=== PATIENT | female | born 1985 | race Caucasian/White ===

== ENCOUNTER 2018-10-31 14:57 | Outpatient (CLI) | payer OTHER ==
--- NOTE | 2018-10-31 16:35 | ULT ---
Obstetric sonogram HISTORY: Second trimester gestation. evaluation. FINDINGS: Single intrauterine gestation in cephalic presentation. Cervix is closed and 3.6 cm. Grade 0 placenta is posterior. No evidence of previa. Amniotic fluid is subjectively within normal limits. No gross intracranial abnormalities. spine and kidneys are intact as visualized. Four-c hamber heart shows motion at 139 bpm. Three-vessel cord shows a normal insertion. Measurements are as follows: Biparietal diameter 20 weeks 1 day. Head circumference 19 weeks 5 days. Abdominal circumference 20 weeks 4 days. Femur length 19 weeks 3 days. [place] 52 percentile. IMPRESSION: Single viable intrauterine gestation with estimated gestational age based on today's sono gram 19 weeks 5 days.
== END 2018-10-31 14:58 | disposition home or self-care (01) ==
LOC: SCSULT 14:57
PROVIDERS: ATTEND Family Medicine
DX: Z32.01 Encounter for pregnancy test, result positive (principal); Z3A.19 19 weeks gestation of pregnancy
CPT/HCPCS: 76805

== ENCOUNTER 2018-12-05 14:01 | Outpatient (CLI) | payer OTHER ==
--- NOTE | 2018-12-05 15:06 | ULT ---
LIMITED OB ULTRASOUND: HISTORY: Left-sided pain for a day and a half. No bleeding. FINDINGS: Real-time imaging of the pelvis demonstrates a single viable intrauterine in a cephalic pre sentation. The placenta is posterior in location without evidence of previa. The cervical canal [facility] is 3.6 cm. heart rate is 144 b.p.m. Amniotic fluid is adequate for this stage of pregnanc y with an amniotic fluid index of 18.8. measurements are as follows: BPD 6.3 cm, 25 weeks 4 days Head circumference 23.2 cm, 25 weeks 1 day Abdominal circumference 19.7 cm, 24 weeks 2 days Femur length 4.2 cm, 23 weeks 6 days IMPRESSION: 1. Single viable intrauterine in a cephalic presentation, overall measurements correspondi ng to a gestational age of 25 weeks 1 day, estimated date of delivery 03/19/2019. 2. Placenta which is posterior in location without evidence of previa. 3. Cervical canal length of 3.6 cm. POS: TPC
== END 2018-12-05 14:02 | disposition home or self-care (01) ==
LOC: SCSULT 14:01
PROVIDERS: ATTEND Family Medicine
DX: O47.00 False labor before 37 completed weeks of gestation, unspecified trimester (principal); Z3A.25 25 weeks gestation of pregnancy
CPT/HCPCS: 76815

== ENCOUNTER 2018-12-07 12:15 | Inpatient (IN) | payer OTHER ==
[2018-12-07 13:30] VITALS: BMI 27.2
--- NOTE | 2018-12-07 14:52 | ULT ---
Limited obstetrical ultrasound INDICATION: Evaluate cervical length COMPARISON: Prior exam dated December 05, 2018 FINDINGS: There is a live intrauterine gestation in cephalic presentation. Cardiac activity is noted at 149 bpm. The cervical length was approximately 2.6 cm without evidence of internal funneling. IMPRESSION: Cervical length of 2.6 cm, slightly shortened from the comparison exam dated 11/27/2018 wh ere the cervix measured 3.13 cm.
[2018-12-07] MEDS ORDERED: Acetaminophen 500 MG TAB PO PRN (15:02)
[2018-12-07] MEDS ORDERED: Promethazine HCl 25 MG/ML VIAL IM PRN (15:02)
[2018-12-07] MEDS ORDERED: Ondansetron PF 4 MG/2 ML Vial IVP PRN (15:02)
[2018-12-07] MEDS ORDERED: Betamet Acet/Betamet Na Ph 30 MG/5 ML VIAL ONE (15:14)
[2018-12-07 15:37] LABS: Hemoglobin 12.2 g/dL (12.0-16.0); Mean Corpuscular HGB CONC 34.9 g/dL (32.0-36.0); Mean Corpuscular Hemoglobin 31.4 pg (27.0-31.0); Mean Corpuscular Volume 90.1 fL (78.0-98.0); Mean Platelet Volume 8.1 fL (7.4-10.4); Platelet Count 223 thou/uL (130-400); RBC Distribution Width 11.8 % (11.5-14.5); Red Blood Cell (RBC) Count 3.89 mill/uL (4.20-5.40); White Blood Cell (WBC) Count 10.8 thou/uL (4.8-10.8)
[2018-12-07 16:17] LABS: Bilirubin Negative (Negative); Blood, Urine 2+ (Negative); Clarity Clear (Clear); Glucose, Urine (Dipstick) Normal (Negative); Leukocyte Negative Leu/uL (Negative); Nitrite Negative (Negative); Protein, Urine (Dipstick) Negative (Neg-Trace); Squamous Epithelial 0-3 HPF (0-3); Urobilinogen Normal mg/dL (Less than 2); WBC/HPF 0-3 HPF (0-3)
[2018-12-07 16:26] LABS: Bacteria/HPF 1+ HPF (None Seen)
[2018-12-07 16:27] LABS: Urine Culture Reflex No No
--- NOTE | 2018-12-07 19:58 | PDOC.LDHP ---
Labor and Delivery H&P Chief complaint: other (short cervix) HPI: 33 y/o G1 at 25w3d, patient of Tushar Ornelas, sent from clinic for cramping and spotting. Was seen earlier in the week and found to have cx length of 3.1. Had sex Monday. Continues to have some mild spotting but no heavy bleeding. Occasional cramping but no consistent ctx. Denies LOF. +FM. Had exam in office where VP3 was collected. ROS neg for HEENT, cv, pulm, gi, gu, neuro, psych, skin, musculoskeletal, or constitutional symptoms other than mentioned above OB History Details: First Current complications: none Past Medical History: None Current medications: pre-christi vitamins Previous surgical history: none Allergies/Adverse Reactions: Allergies Allergy/AdvReac Type Severity Reaction Status Date / Time No Known Allergies Allergy Verified 12/07/18 15:56 Social history: none - Physical Exam Vital signs reviewed and normal: yes General: NAD, resting FHT: category 1 (140s, mod variabilty, AGA reactive) [place] contractions every: occasional - OB Labs Blood type: A RH: positive - Assessment L&D Assessment: labor (short cervix) - Plan Plan: admit to L&D -: 1. Celestone for lung maturity 2. Will start tocolysis, abx, MgSO4 if ctx start 3. UA, VP3, GC/CT pending 4. Consider repeat cervical length after steroids if no s/s PTL.
[2018-12-08] MEDS: Lactated Ringer's 1,000 ML IV SCH ×5 (00:03→20:06)
[2018-12-08] MEDS ORDERED: Calcium Gluc 4.6 MEQ/10 ML (100 MG/ML) SLOW IVP PRN (07:01)
[2018-12-08] MEDS ORDERED: Penicillin G Potassium 5 MILL.UNITS VIAL ONE (07:07)
[2018-12-08] MEDS ORDERED: Penicillin G Potassium 5 MILL.UNITS in Sodium Chloride 0.9% 100 ML IVPB SCH (07:15)
[2018-12-08] MEDS: Magnesium Sulfate 20 gm/500 ml 20 GM/500 ML BAG ONE (07:15)
[2018-12-08] MEDS: Magnesium Sulfate 20 gm/500 ml 20 GM/500 ML BAG IVPB SCH ×3 (07:15→15:17)
[2018-12-08] MEDS ORDERED: MAGNESIUM IVPB SCH (07:15)
--- NOTE | 2018-12-08 07:46 | PDOC.EVN ---
Event Note - Event Note Event Note: Patient with ctx on monitor q 2-3 mins overnight but not significantly painful. Continued spotting. AFVSS Gen - AAONAD Chest - nonlabored Abd - gravid, NTTP SVE - /50/-2 A/P - 33 y/o G1 at 25w4d with 1. Shortened cx with ?PTL, now with ctx on monitor. Will start MgSO4 for neuroprotection, PCN. Continue to monitor.
[2018-12-08] MEDS: Betamet Acet/Betamet Na Ph 30 MG/5 ML VIAL IM SCH ×2 (07:57→15:17)
--- NOTE | 2018-12-08 09:01 | PDOC.EVN ---
Event Note - Event Note Event Note: Received report from Dr. Das. G1 at 25 4/7 weeks with Ucs and shorting cervix by USG. Fhts stable, irregular UCs now. USG vtx, CL= 2.6 cm. Plan: 2nd dose of steroids due this PM, continue MgS04.
[2018-12-08] MEDS: Penicillin G 2.5 MILL.units 2.5 MILL.UNITS in Premix Bag 1 BAG IVPB SCH ×4 (10:58→23:24)
[2018-12-08] MEDS: metroNIDAZOLE 250 MG TAB PO SCH ×2 (10:58→20:08)
--- NOTE | 2018-12-09 00:09 | PDOC.EVN ---
Event Note - Event Note Event Note: 25 5/7 weeks No c/o, denies cramping or bleeding. VSS AF 2nd dose of steroids given at 1P. Plan: Cont. Mg So4 x 24 hrs post last sterois dose and observe closely.
[2018-12-09] MEDS: Magnesium Sulfate 20 gm/500 ml 20 GM/500 ML BAG IVPB SCH (01:50)
[2018-12-09] MEDS: Penicillin G 2.5 MILL.units 2.5 MILL.UNITS in Premix Bag 1 BAG IVPB SCH ×6 (03:05→21:54)
[2018-12-09] MEDS ORDERED: Polyethylene Glycol 3350 17 GM Packet PO SCH (09:00)
[2018-12-09] MEDS: metroNIDAZOLE 250 MG TAB PO SCH ×3 (09:51→20:54)
[2018-12-09] MEDS ORDERED: Progesterone,Micronized 100 MG CAP PO SCH (12:00)
--- NOTE | 2018-12-09 12:22 | ULT ---
Exam: Limited OB ultrasound: HISTORY: Evaluate cervical length COMPARISON: 12/07/2018 FINDINGS: Cervical length equals 2.2 cm. Cephalic presentation. heart rate 143 bpm. Amniotic fluid within normal limits. IMPRESSION: Stable Limited OB ultrasound. Cervical length 2.2 cm.
--- NOTE | 2018-12-09 12:40 | PDOC.EVN ---
Event Note - Event Note Event Note: PT is a 33yo with iup 25.5 admitted for contractions, vaginal spotting, and shortening cervix. She is s/p steroids and magnesium. Symptoms have resolved. REpeat tvus for cervical length shows beaking with 2.2 cm cervical length, shortened from 3.5cm at her last exam. Pt not a candidate for cervical cerclage. Unsure how much contractions have played a role as pt primary concern was the bleeding and minor cramping. Vaginal progesterone may be beneficial for her in this situations. existing studies suggest this may be more effective than 17 alpha medroxyprogesterone caporate. Will start on 200mg vaginally qhs. may need to get from compounding pharmacy. will be using prometrium micronized progesterone here in the hospital. Will continue to observe today and reevaluate tomorrow for possible discharge on modified bed rest for a week or so and reevaluate.
[2018-12-09] MEDS: Lactated Ringer's 1,000 ML IV SCH ×3 (12:50→21:54)
[2018-12-09] MEDS: Betamet Acet/Betamet Na Ph 30 MG/5 ML VIAL IM SCH (17:46)
[2018-12-09] MEDS: Progesterone,Micronized 100 MG CAP PO SCH (22:55)
[2018-12-10 00:08] LABS: Chlamydia by PCR Not Detected (NotDetected); GC by PCR Not Detected (NotDetected)
[2018-12-10] MEDS: Lactated Ringer's 1,000 ML IV SCH ×3 (08:18→23:51)
[2018-12-10] MEDS: metroNIDAZOLE 250 MG TAB PO SCH ×3 (09:07→21:38)
[2018-12-10 09:09] VITALS: BP 105/55; TEMP 98.6
--- NOTE | 2018-12-10 10:50 | PDOC.EVN ---
Event Note - Event Note Event Note: 26 weeks USG yesterday showed shortened cervix with new onset funneling per Dr. Kellogg. No c/o this AM. VSS AF Fhts stable, no sinificant UCs noted. Plan: Cont. in-hospital observation with progesterone and serial USGs for cervical length.
[2018-12-10] MEDS: Progesterone,Micronized 100 MG CAP PO SCH (21:38)
--- NOTE | 2018-12-11 00:30 | PDOC.EVN ---
Event Note - Event Note Event Note: 26 1 weeks. Resting. Had a small amt. of spotting earlier, no other complaints. VSS AF. monitoring reassuring. Will repeat USG with cervical length in AM.
[2018-12-11] MEDS: metroNIDAZOLE 250 MG TAB PO SCH ×3 (09:18→21:28)
[2018-12-11] MEDS: Lactated Ringer's 1,000 ML IV SCH (09:18)
--- NOTE | 2018-12-11 09:20 | ULT ---
Limited obstetrical ultrasound: 12/11/2018 COMPARISON: 12/09/2018 HISTORY: Evaluate cervical length TECHNIQUE: Multiplanar grayscale sonographic imaging of the cervix obtained. FINDINGS: There is a single intrauterine gestation demonstrating a vertex presentation. heart r ate is 155 bpm. Cervical length is approximately 1.8-2.0 cm. There is possible mild funneling of the cervix in the re gion of the internal os. IMPRESSION: Cervical length is approximately 1.8-2 cm with probable mild funneling seen. The [facility] floor scraper reports that Dr. Kellogg was present during the examination and is aware of the findings.
[2018-12-11] MEDS ORDERED: Polyethylene Glycol 3350 17 GM Packet PO PRN (10:23)
[2018-12-11] MEDS ORDERED: Ondansetron ODT 4 MG TAB PO PRN (10:25)
[2018-12-11] MEDS ORDERED: diphenhydrAMINE 12.5 MG/5 ML UDCUP PO PRN (10:48)
[2018-12-11] MEDS ORDERED: Zolpidem Tartrate 5 MG TAB PO PRN (10:48)
[2018-12-11] MEDS: Progesterone,Micronized 100 MG CAP PO SCH (21:59)
[2018-12-12] MEDS: metroNIDAZOLE 250 MG TAB PO SCH ×3 (07:59→20:50)
--- NOTE | 2018-12-12 10:04 | PRG ---
DATE OF SERVICE: 12/12/2018 PRIMARY OB: Sheila Ornelas MD SUBJECTIVE: The patient is now hospital day 5 for antepartum care. She was initially admitted for concerns of shortening cervix and imminent delivery, placed on magnesium and steroids and has since continued to shorten her cervix. Evaluation yesterday morning showed a cervical length with funneling and a length of 1.7 cm down from 2.5 the day before. The patient this morning reports she continues to have occasional spotting, but otherwise denies any pains, clear leaking fluid, has no other obstetric complaints. OBJECTIVE: VITAL SIGNS: This morning, blood pressure is 110/59, pulse is 78, respiratory rate 14, and temperature 97.9 degrees. GENERAL: She appears to be in no acute distress. She is alert, oriented, cooperative, and pleasant to interact with. ABDOMEN: Soft and nontender. EXTREMITIES: Nontender and nonedematous. ASSESSMENT AND PLAN: The patient is 26 weeks and a day today and given the rapid cervical shortening over the last week, we will continue in-house management at this time. She is status post steroids and magnesium and for neuroprotection and lung maturity. Plan at this time will be to repeat her cervical length tomorrow to see if there is any acute shortening of her cervix; if not, would consider discharging her home and continuing her on vaginal progesterone at bedtime of 200 mg Prometrium or other progesterone preparation. Her primary OB is Dr. Sheila Ornelas, who will likely be managing her outpatient care. Job ID: [id number]
[2018-12-12] MEDS: Progesterone,Micronized 100 MG CAP PO SCH (20:50)
[2018-12-12] MEDS: Betamet Acet/Betamet Na Ph 30 MG/5 ML VIAL IM SCH (21:27)
--- NOTE | 2018-12-13 00:14 | PDOC.EVN ---
Event Note - Event Note Event Note: 26 3/7 weeks. No complaints, no spotting today. VSS AF Fhts are stable, no UCs seen. Plan; Repeat USG later today for f/u cervical length.
[2018-12-13] MEDS: metroNIDAZOLE 250 MG TAB PO SCH ×2 (09:01→15:18)
--- NOTE | 2018-12-13 10:06 | ULT ---
EXAM: OB ultrasound COMPARISON: None HISTORY: female. Evaluate cervical length, weight, and presentation TECHNIQUE: Multiplanar grayscale and color Doppler images were obtained in a transabdominal ult rasound. FINDINGS: There is a single live intrauterine with heart rate of 147 bpm. A limited s urvey was performed which is unremarkable. Estimated weight is 855 g. Average age of the fetus based off today's examination is 25 weeks 4 days. BPD 5.99 cm -- 24 weeks 3 days HC 23.79 cm -- 25 weeks 6 days AC 21.15 cm -- 25 weeks 5 days FL 4.83 cm -- 26 weeks 1 day The placenta is posterior in location without focal abnormality. The fetus is in breech presentation at this time. SANTHOSH is 16.1 cm which is normal. The cervix is short in length measuring 1.8 cm. There is questionable funneling at the internal os. There is no evidence of placenta previa. IMPRESSION: 1. Single live intrauterine with estimated age of 25 weeks 4 days. 2. Cervical shortening with possible funneling
--- NOTE | 2018-12-14 04:31 | DIS ---
DATE OF ADMISSION: 12/07/2018 DATE OF DISCHARGE: 12/13/2018 ADMISSION DIAGNOSIS: Cervical insufficiency. DISCHARGE DIAGNOSIS: Cervical insufficiency. PROCEDURE: None. CONSULTATIONS: None. HOSPITAL COURSE: The patient is a 33-year-old female who was admitted to the hospital for concerns of cervical insufficiency, placed on magnesium for neuro protection and steroids for her lung maturity. Serial ultrasounds demonstrate a persistently shortening cervix from 3.5 cm to 2.5 cm to 2.2 cm to 1.7 cm. By day 5, the patient was noted to have a stable cervix at 1.7 cm over a 2-day period, still closed on digital exam. The patient was placed on Prometrium 200 mg at bedtime vaginally. On day 3 of her stay, she is being discharged now, stable, with no signs of labor, rupture of membranes. Current vital signs; blood pressure 108/71, heart rate is running in the 70s to 90s, respiratory rate of 18, temperature 98.1. In general, she appears to be in no acute distress. She is alert and oriented, cooperative, and pleasant to interact with. Head is normocephalic and atraumatic. Lungs are clear to auscultation bilaterally. Abdomen is soft. Again, cervical exam today demonstrates a closed cervix. transvaginal ultrasound shows a cervical length of 1.7 cm with a funneling, stable from 2 days ago. The patient is being discharged to home. She has a prescription of Prometrium 200 mg to be taken vaginally at bedtime. She also has been asked to follow up with her primary OB, Dr. Sheila Ornelas next Monday. Dr. Sheila Ornelas [place], but her has been updated to the patient's status. The patient has been given labor precautions. Today, she is now 26 weeks and 2 days gestation. Job ID: [id number]
== END 2018-12-13 18:23 | disposition home health service (06) | DRG 833 ==
LOC: L&D/OP 12:15 → L&D 15:18
PROVIDERS: ADMIT Family Medicine; ATTEND Family Medicine
DX: O26.872 Cervical shortening, second trimester (principal); Z3A.25 25 weeks gestation of pregnancy
CPT/HCPCS: 36415; 76815; 76816; 81001; 85027; 86850; 86900; 86901; 87070; 87077; 87480; 87491; 87510; 87591; 87660; 99285; J0702; J2540; J3475

== ENCOUNTER 2019-02-06 07:13 | Outpatient (CLI) | payer OTHER ==
--- NOTE | 2019-02-06 10:18 | ULT ---
EXAM: Obstetrical ultrasound greater than 14 weeks: HISTORY: labor COMPARISON: 12/13/2018 FINDINGS: Single viable intrauterine fetus is noted in Cephalic presentation. heart rate equals 163 bpm. Placenta is posterior. Cervical length is 2.0 cm. Amniotic fluid is Within normal limits. anatomy: anatomy was not specifically addressed at time of this examination. biometry: BPD: 8 cm--32 weeks 3 days Head circumference: 28.6 cm--31 weeks 3 days Abdominal circumference: 29.1 cm--33 weeks 1 day Femur length:6.4 cm--33 weeks 1 day IMPRESSION: Gestational age by ultrasound: 32 weeks 4 days ANNA by ultrasound: 03/19/2019 Estimated weight: 2059 g
== END 2019-02-06 07:14 | disposition home or self-care (01) ==
LOC: BICULT 07:13
PROVIDERS: ATTEND Family Medicine
DX: O47.03 False labor before 37 completed weeks of gestation, third trimester (principal); Z3A.33 33 weeks gestation of pregnancy
CPT/HCPCS: 76805

== ENCOUNTER 2019-02-20 08:05 | Outpatient (CLI) | payer OTHER ==
--- NOTE | 2019-02-20 11:35 | ULT ---
OB ULTRASOUND: HISTORY: IUGR. FINDINGS: A single live intrauterine gestation was seen with measurements corresponding to an estimated gestati onal age of 34 weeks 6 days and ANNA at 03/28/2019. The estimated weight measures 2421 gm or 5 pounds 5 ounces. measurements are as follows: BPD 8.72 cm, 35 weeks 1 day HC 31.63 cm, 35 weeks 4 days AC 29.50 cm, 33 weeks 3 days FL 6.89 cm, 35 weeks 3 days heart rate measures 134 b.p.m. SANTHOSH measures 18.2 cm. Placenta is posteriorly located without evidence of placenta previa. The 3-vessel cord, cord insertion, kidneys, stomach, 4-chamber heart, bladder are visualized wi thout anomalies. IMPRESSION: Single live intrauterine 34 weeks 6 days estimated gestational age and estimated date of de livery at 03/28/2019. POS: KRANTHI
== END 2019-02-20 08:06 | disposition home or self-care (01) ==
LOC: SCSULT 08:05
PROVIDERS: ATTEND Family Medicine
DX: O36.5930 Maternal care for other known or suspected poor fetal growth, third trimester, not applicable or unspecified (principal); Z3A.34 34 weeks gestation of pregnancy
CPT/HCPCS: 76805

== ENCOUNTER 2019-03-20 19:15 | Inpatient (IN) | payer OTHER ==
[~2019-03-20 19:15] MED LIST: Bupivacaine 0.25% HCL 30 ML VIAL ONE; Sodium Chloride 0.9% (PF) 10 ML VIAL ONE
[2019-03-20] MEDS ORDERED: NS w/ Oxytocin 10 units 500 ML IV SCH ×2 (20:45)
[2019-03-20] MEDS ORDERED: hydrALAZINE 20 MG/ML VIAL SLOW IVP PRN (20:45)
[2019-03-20] MEDS ORDERED: NS / Oxytocin 40 units/1000ml 1,000 ML IV PRN (20:45)
[2019-03-20] MEDS ORDERED: Lidocaine 1% (PF) 30 ML VIAL SC PRN (20:45)
[2019-03-20] MEDS ORDERED: Ondansetron PF 4 MG/2 ML Vial IVP PRN (20:45)
[2019-03-20] MEDS ORDERED: Acetaminophen 500 MG TAB PO PRN (20:45)
[2019-03-20] MEDS ORDERED: HYDROcodone/Acetaminophen 5/325 mg Tablet PO PRN (20:45)
[2019-03-20] MEDS ORDERED: Zolpidem Tartrate 5 MG TAB PO PRN (20:45)
[2019-03-20] MEDS ORDERED: Misoprostol 200 MCG TAB PR PRN (20:45)
[2019-03-20] MEDS ORDERED: Ibuprofen 800 MG TAB PO PRN (20:45)
[2019-03-20] MEDS ORDERED: Promethazine HCl 25 MG/ML VIAL IM PRN (20:45)
[2019-03-20] MEDS ORDERED: Methylergonovine 0.2 MG/ML VIAL IM PRN (20:45)
[2019-03-20] MEDS ORDERED: Acetaminophen/Codeine 30-300mg Tablet PO PRN (20:45)
[2019-03-20 21:00] VITALS: BMI 31.3
[2019-03-20] MEDS: Lactated Ringer's 1,000 ML IV SCH (21:14)
[2019-03-20 21:38] LABS: Hemoglobin 13.3 g/dL (12.0-16.0); Mean Corpuscular HGB CONC 34.9 g/dL (32.0-36.0); Mean Corpuscular Hemoglobin 30.9 pg (27.0-31.0); Mean Corpuscular Volume 88.6 fL (78.0-98.0); Mean Platelet Volume 8.8 fL (7.4-10.4); Platelet Count 241 thou/uL (130-400); RBC Distribution Width 12.3 % (11.5-14.5); White Blood Cell (WBC) Count 8.3 thou/uL (4.8-10.8)
[2019-03-20] MEDS: Misoprostol 100 MCG TAB VAG SCH (21:49)
[2019-03-20 22:21] LABS: Syphilis Antibody Nonreactive (Nonreactive); Syphilis Antibody Index 0.05 S/CO (<1.00 Non-Reactive)
[2019-03-21 01:33] LABS: HBSAg Index 0.28 S/CO (0-0.99); Hep B Surf Ag Non-Reactive S/CO (NonReactive)
[2019-03-21] MEDS: Lactated Ringer's 1,000 ML IV SCH ×2 (03:48→07:33)
[2019-03-21] MEDS: Butorphanol Tartrate 1 MG/ML VIAL SLOW IVP PRN ×2 (07:07→08:06)
[2019-03-21] MEDS: Misoprostol 100 MCG TAB VAG SCH (07:56)
[2019-03-21] MEDS ORDERED: Fentanyl 4 mcg/Bup 0.1% Cadd 100 ML ONE (08:14)
[2019-03-21] MEDS ORDERED: Ondansetron PF 4 MG/2 ML Vial IVP PRN ×2 (09:04→14:15)
[2019-03-21] MEDS ORDERED: Promethazine HCl 25 MG/ML VIAL IM PRN (09:04)
[2019-03-21] MEDS ORDERED: ePHEDrine/0.9% NaCl/PF SYRINGE 50 mg/10 ml SLOW IVP PRN (09:04)
[2019-03-21] MEDS ORDERED: Lactated Ringer's 500 ML IV PRN (09:04)
[2019-03-21] MEDS ORDERED: Naloxone HCl 0.4 mg/ml Vial IVP PRN ×2 (09:04)
[2019-03-21] MEDS ORDERED: Acetaminophen 325 MG TAB PO PRN (09:04)
[2019-03-21] MEDS ORDERED: diphenhydrAMINE 50 MG/ML VIAL IVP PRN (09:04)
[2019-03-21] MEDS ORDERED: Communication Order-Pharmacy FS SCH (09:15)
[2019-03-21] MEDS ORDERED: Fentanyl 4 mcg/Bupivacaine 0.1% Cassette 100 ML EPIDURAL SCH (09:15)
[2019-03-21] MEDS ORDERED: HYDROcodone/Acetaminophen 5/325 mg Tablet PO PRN (10:45)
[2019-03-21] MEDS ORDERED: Preparation H Ointment 28 GM TUBE PR PRN (14:15)
[2019-03-21] MEDS ORDERED: NS / Oxytocin 40 units/1000ml 1,000 ML IV SCH (14:15)
[2019-03-21] MEDS ORDERED: Lanolin Ointment 7 GM TUBE TOP PRN (14:15)
[2019-03-21] MEDS ORDERED: Benzocaine-Menthol 82.5 ML CAN TOP PRN (14:15)
[2019-03-21] MEDS ORDERED: hydrALAZINE 20 MG/ML VIAL SLOW IVP PRN (14:15)
[2019-03-21] MEDS ORDERED: Bisacodyl 10 MG SUPP PR PRN (14:15)
[2019-03-21] MEDS ORDERED: diphenhydrAMINE 25 MG CAP PO PRN (14:15)
[2019-03-21] MEDS ORDERED: Milk Of Magnesia 30 ML UDCUP PO PRN (14:15)
[2019-03-21] MEDS ORDERED: Docusate Calcium (SURFAK) 240 MG CAP PO SCH (14:30)
[2019-03-21] MEDS ORDERED: Ferrous Sulfate 325 MG TAB PO SCH (14:30)
[2019-03-21] MEDS ORDERED: Prenatal Vitamin 1 TAB PO SCH (14:30)
[2019-03-21] MEDS: Ferrous Sulfate 325 MG TAB PO SCH (17:50)
[2019-03-21] MEDS: Ibuprofen 800 MG TAB PO SCH ×2 (17:50→21:55)
[2019-03-21] MEDS: Docusate Calcium (SURFAK) 240 MG CAP PO SCH (21:55)
[2019-03-22] MEDS: Misoprostol 100 MCG TAB VAG SCH (05:00)
[2019-03-22] MEDS: Ibuprofen 800 MG TAB PO SCH ×3 (05:46→21:33)
[2019-03-22] MEDS: Prenatal Vitamin 1 TAB PO SCH (08:24)
[2019-03-22] MEDS: Docusate Calcium (SURFAK) 240 MG CAP PO SCH ×2 (08:24→21:33)
[2019-03-22] MEDS: Ferrous Sulfate 325 MG TAB PO SCH ×2 (08:24→17:36)
[2019-03-23] MEDS: Ibuprofen 800 MG TAB PO SCH ×2 (06:12→13:28)
[2019-03-23] MEDS: Docusate Calcium (SURFAK) 240 MG CAP PO SCH (09:20)
[2019-03-23] MEDS: Prenatal Vitamin 1 TAB PO SCH (09:20)
[2019-03-23] MEDS: Ferrous Sulfate 325 MG TAB PO SCH (09:21)
[2019-03-23 10:07] VITALS: BP 110/54; TEMP 98.1
--- NOTE | 2019-03-25 12:02 | DIS ---
DATE OF ADMISSION: 03/20/2019 DATE OF DISCHARGE: 03/23/2019 ADMITTING DIAGNOSES: 1. Intrauterine at 39 weeks. 2. Elective induction of labor. DISCHARGE DIAGNOSES: 1. Intrauterine at 39 weeks. 2. Elective induction of labor. PROCEDURE: Term spontaneous vaginal delivery. CONSULTATIONS: None. HOSPITAL COURSE: The patient is a 33-year-old female, who presented at 39 weeks and 3 days gestation for an elective induction of labor, resulting in an uncomplicated term spontaneous vaginal delivery. For complete details, please refer to the delivery note. Her course has been uncomplicated. Today is day 2. She is reporting she is tolerating p.o., voiding on her own, having decreased lochia and good pain control. The patient in general appears to be seated and clothed with her and baby, appears to be in no acute distress. She reports decreased lochia. Voiding on her own, tolerating p.o. The patient will be discharged to home. She has instructions to follow up with Dr. Ornelas in 6 weeks or sooner if she experiences fever, increasing pain, or bleeding. The patient will be discharged to home with ibuprofen to be taken as needed for pain control. Job ID: [id number]
== END 2019-03-23 16:40 | disposition home or self-care (01) | DRG 806 ==
LOC: L&D 20:27 → 3SW 03-21 14:24
PROVIDERS: ADMIT Family Medicine; ATTEND Family Medicine
PROC: 10907ZC Drainage of Amniotic Fluid, Therapeutic from Products of Conception, Via Natural or Artificial Opening (ICD-10-PCS; principal; 2019-03-20)
PROC: 10E0XZZ Delivery of Products of Conception, External Approach (ICD-10-PCS; 2019-03-20)
PROC: 3E033VJ Introduction of Other Hormone into Peripheral Vein, Percutaneous Approach (ICD-10-PCS; 2019-03-20)
PROC: 0UQGXZZ Repair Vagina, External Approach (ICD-10-PCS; 2019-03-20)
DX: O48.0 Post-term pregnancy (principal); O71.4 Obstetric high vaginal laceration alone; Z37.0 Single live birth; O26.873 Cervical shortening, third trimester; Z3A.41 41 weeks gestation of pregnancy; O76 Abnormality in fetal heart rate and rhythm complicating labor and delivery; O75.4 Other complications of obstetric surgery and procedures
CPT/HCPCS: 36415; 85027; 86780; 86850; 86900; 86901; 87340; J0595; J2590; S0020